=== PATIENT | male | born 1975 | race Caucasian/White ===

== ENCOUNTER 2021-04-08 10:36 | Day surgery (SDC) | payer BC ==
[~2021-04-08] VITALS: Ht 180.3 cm; Wt 90.7 kg
[~2021-04-08 10:36] MED LIST: ADIPEX-P37.5 MG; PERCOCET 5-3251 TAB PO; TORADOL10 MG PO; VISTARIL50 MG PO; ZYLOPRIM300 MG
[2021-04-08 11:45] VITALS: BP 127/82; Ht 180.3 cm; Wt 90.7 kg
--- NOTE | 2021-04-08 16:16 | NUR ---
1535 PATIENT DISCHARGED VIA W/C TO PRIVATE CAR TO GO HOME.
--- NOTE | 2021-04-09 06:24 | OP ---
PATIENT NAME: LEXI HAAS MEDICAL RECORD: [id number] :71 LOCATION:[facility] ADMISSION DATE: SURGEON: JEFFERY ASENCIO DO DATE OF OPERATION: 04/08/2021 PROCEDURE PERFORMED: Left knee arthroscopy with partial lateral meniscectomy. INDICATIONS: Mr. Haas is a 45-year-old male who has had left knee pain for quite some time. It started catching and popping on him quite a bit. He had an MRI showing lateral meniscal tear. This was a very complex posterior horn of it. I told him that I get in there and try to look at it and see if I could fix it. If I could not, do a partial meniscectomy and resecting back to a stable point. He was okay with that. He is aware of the risks including infection, bleeding, damage to nerves or vessels, need for further surgery, continued pain, retear of meniscus, blood clots and even and he signed the consent. SURGEON: Jeffery Asencio DO DESCRIPTION OF PROCEDURE: The patient was taken to the operative suite, laid in the supine position, given general anesthetic and LMA was placed, given 2 grams of Ancef preoperatively. Left lower extremity was then prepped and draped in sterile fashion. A timeout was performed. Everyone was in agreeance with the correct side, site, patient and procedure. We then flexed the knee down and established a lateral portal with an 11-scalpel, trocar entered into the joint. I then brought the camera and inspected the suprapatellar pouch. No loose body seen on the patella, medial and lateral gutters. I then flexed the knee down and established medial portal with an 18-gauge spinal needle and an 11-blade scalpel. Trocar brought in. I then brought a probe in and noted valgus stress of the knee and extended and inspected the medial joint. His meniscus was in good shape and his cartilage was also in good shape on the medial compartment. I then flexed the knee and then inspected the ACL. The ACL was in good repair as well and then [id number]'ed the knee. I went to the lateral compartment of the knee and a slightly large tear in the undersurface of the lateral meniscus posterior horn extending almost entirely the posterior horns save most posteior really 1 cm or so at the root and it was divided in half. The horizontal tear did not look repairable at all. I then brought in a biter and shaver and got it back to a stable point and removed the meniscus that was torn. Once this was back to a stable point, I inspected the patellofemoral joint. No loose body was seen in the tract. The patella tracked well in the trochlea. I then turned the suction on and the water off, removed the excess fluid from the knee. We then removed all the instruments, injected with 0.25% Marcaine with epinephrine just under the skin of the portal sites and closed it with 4-0 Monocryl inverted fashion. He was then dressed with Steri-Strips, Adaptic, 4 x 4, ABD, Webril, Bienvenido wrap and WILLAM hose stocking up to the knee. He was awakened and taken to recovery in stable condition. BLOOD LOSS: Minimal. COMPLICATIONS: None. TRANSINT:[id number] Voice Confirmation ID: [id number] DOCUMENT ID: [id number] OPERATIVE REPORT [id number] LEXI HAAS MICHAEL D, DO at 0624 CC: [id number] DICTATION DATE: 04/08/21 1350 [facility]ER: 04/08/21 1827 [facility] 04/08/21 [facility] [address] [place] [address]
== END 2021-04-08 15:35 | disposition home or self-care (01) ==
LOC: D.OPS 10:36
PROVIDERS: ATTEND Orthopaedic Surgery
DX: S83.282A Other tear of lateral meniscus, current injury, left knee, initial encounter (principal); X58.XXXA Exposure to other specified factors, initial encounter; M25.562 Pain in left knee